=== PATIENT | female | born 1975 | race Native Hawaiian/Other Pacific Islander ===

== ENCOUNTER 2018-09-26 17:04 | Outpatient (CLI) | payer OTHER | END 2018-09-26 17:05 | disposition home or self-care (01) | LOC: RAD 17:04 | DX: M25.552 Pain in left hip (principal) ==

== ENCOUNTER 2018-11-13 10:41 | Outpatient (CLI) | payer OTHER | END 2018-11-13 10:42 | disposition home or self-care (01) | LOC: RAD 10:41 ==